=== PATIENT | female | born 1965 | race Caucasian/White ===

== ENCOUNTER 2021-11-17 16:49 | Emergency (ER) | payer BC ==
[~2021-11-17] VITALS: Ht 167.6 cm; Wt 80.0 kg
[2021-11-17 16:58] VITALS: BP 159/78
== END 2021-11-17 19:00 | disposition home or self-care (01) ==
LOC: ER 16:50
DX: R20.2 Paresthesia of skin (principal); R25.2 Cramp and spasm; R06.02 Shortness of breath
CPT/HCPCS: 99281